=== PATIENT | male | born 1990 | race Caucasian/White ===

== ENCOUNTER 2018-04-13 18:31 | Emergency (ER) | payer OTHER ==
[~2018-04-13] VITALS: Ht 188 cm; Wt 122.5 kg
[2018-04-13 18:39] VITALS: BP_SYST 154
[2018-04-13] MEDS ORDERED: LORazepam 1 MG TABLET PO ONE (19:45)
[2018-04-13] MEDS ORDERED: KETOROLAC TROMETHAMINE 60 MG/2 ML VIAL IM ONE (20:00)
[2018-04-13] MEDS ORDERED: HYDROcodone/ACETAMIN 5-325 MG TAB (NORCO/ VICODIN) PO ONE (21:00)
[2018-04-13 21:27] VITALS: BP_SYST 138
== END 2018-04-13 21:27 | disposition home or self-care (01) ==
LOC: SED 18:31
DX: G44.209 Tension-type headache, unspecified, not intractable (principal); F41.9 Anxiety disorder, unspecified; R03.0 Elevated blood-pressure reading, without diagnosis of hypertension
CPT/HCPCS: 93005; 96372; 99283; J1885

== ENCOUNTER 2018-08-28 03:48 | Inpatient (IN) | payer OTHER ==
[~2018-08-28] VITALS: Ht 188 cm; Wt 113.4 kg
[2018-08-28] VITALS (12 sets, daily range): BP systolic 96–147
[2018-08-28] MEDS ORDERED: NACL 0.9% 2,000 ML IV ONE (04:00)
[2018-08-28] MEDS ORDERED: SODIUM BICARBONATE 8.4% JECT 50 MEQ/50 ML SYRINGE IVP ONE (04:15)
[2018-08-28 04:16] LABS: BASOPHILS % (AUTO) 0.2 % (0.0-2.0); EOSINOPHILS # (AUTO) 0.1 K/uL (0.0-0.4); EOSINOPHILS % (AUTO) 0.5 % (0.0-4.0); HEMOGLOBIN 14.1 g/dL (14.0-18.0); LYMPHOCYTES # (AUTO) 1.3 K/uL (1.0-5.5); LYMPHOCYTES % (AUTO) 12.7 % (20.5-51.5); MEAN CORPUSCULAR HEMOGLOBIN 29 pg (27-31); MEAN CORPUSCULAR HGB CONC 34 % (32-36); MEAN CORPUSCULAR VOLUME 88 fL (79.0-98.0); MONOCYTES # (AUTO) 0.5 K/uL (0.0-1.0); MONOCYTES % (AUTO) 5.1 % (1.7-9.3); NEUTROPHILS # (AUTO) 8.6 K/uL (1.8-7.7); NEUTROPHILS % (AUTO) 81.5 % (40.0-70.0); PLATELET COUNT (AUTO) 219 K/uL (130-430); RED BLOOD CELL COUNT(AUTO) 4.79 MIL/uL (4.2-6.2); RED CELL DISTRIBUTION WIDTH 12.7 % (9.0-15.0); WHITE BLOOD COUNT (AUTO) 10.5 K/uL (4.8-10.8)
[2018-08-28 04:26] LABS: ANION GAP 9 (5-15); CALCIUM 8.6 mg/dL (8.4-11.0); CHLORIDE 93 mmol/L (98-107); CREATININE 0.96 mg/dL (0.55-1.30); GLUCOSE 184 mg/dL (70-99); POTASSIUM 3.8 mmol/L (3.5-5.1); SODIUM SERUM 128 mmol/L (136-145); UREA NITROGEN, BLOOD 11 mg/dL (8-21)
[2018-08-28 04:33] LABS: ALANINE AMINOTRANSFERASE 42 U/L (12-78); ALBUMIN 3.8 g/dL (3.4-4.8); ALCOHOL, BLOOD < 3 mg/dL (<10); ASPARTATE AMINOTRANSFERASE 22 U/L (10-37); GFR AFRICAN AMERICAN 121 mL/min (>90); TOTAL BILIRUBIN 0.6 mg/dL (0.0-1.0)
[2018-08-28] MEDS ORDERED: levETIRAcetam 1,500 MG in NS 100 ML IV ONE (05:15)
[2018-08-28 10:14] LABS: ACETAMINOPHEN < 1 ug/mL (1-30)
[2018-08-28] MEDS ORDERED: PANTOPRAZOLE SODIUM 40 MG/VIAL (PROTONIX) IVP ONE (10:30)
[2018-08-28] MEDS ORDERED: ONDANSETRON HCL 4 MG/2 ML VIAL IVP ONE (10:30)
[2018-08-28] MEDS ORDERED: LORazepam 2 MG/ML VIAL IVP ONE (10:30)
[2018-08-28] MEDS ORDERED: LORazepam 2 MG/ML VIAL IM PRN (12:00)
[2018-08-28] MEDS ORDERED: ACETAMINOPHEN 650 MG SUPP.RECT RC PRN (12:00)
[2018-08-28] MEDS ORDERED: ONDANSETRON HCL 4 MG/2 ML VIAL IVP PRN (12:00)
[2018-08-28] MEDS: KCL 20 mEq in NS 1000 mL 1,000 ML IV SCH ×2 (12:42→21:00)
[2018-08-28] MEDS ORDERED: INSULIN LISPRO SLIDING SCALE 100 UNITS/ML VIAL (humaLOG) SUBCUT PRN (14:30)
[2018-08-28 16:29] LABS: BARBITURATE, URINE NEGATIVE (NEG <=200); BENZODIAZEPINE, URINE NEGATIVE (NEG <=150); CANNABINOID, URINE POSITIVE (NEG <=50); COCAINE, URINE NEGATIVE (NEG <=150); METHAMPHETAMINES SCREEN,URINE NEGATIVE (NEG <=500); OPIATE, URINE NEGATIVE (NEG <=100); PHENCYCLIDINE SCREEN,URINE NEGATIVE (NEG <=25); UR TRICYCLIC ANTIDEPRESSANTS NEGATIVE (NEG <=300); URINE AMPHETAMINE NEGATIVE (NEG <=500); URINE METHADONE NEGATIVE (NEG <=200); URINE OXYCODONE SCREEN NEGATIVE (NEG <=100); URINE PROPOXYPHENE SCREEN NEGATIVE (NEG <=300)
[2018-08-28] MEDS: levETIRAcetam 750 MG in NS 100 ML IV SCH (21:49)
[2018-08-29 05:15] LABS: CALCIUM 8.5 mg/dL (8.4-11.0); CREATININE 0.83 mg/dL (0.55-1.30); POTASSIUM 3.6 mmol/L (3.5-5.1)
[2018-08-29 05:31] LABS: THYROID STIMULATING HORMONE 0.7 uIu/mL (0.36-3.74)
[2018-08-29] MEDS: KCL 20 mEq in NS 1000 mL 1,000 ML IV SCH (06:03)
[2018-08-29 08:01] VITALS: BP_SYST 129
[2018-08-29] MEDS ORDERED: ACETAMINOPHEN 325 MG TABLET PO PRN (09:15)
[2018-08-29] MEDS: levETIRAcetam 750 MG in NS 100 ML IV SCH (09:16)
[2018-08-29 11:47] VITALS: BP_SYST 119
[2018-08-29] MEDS ORDERED: LEVE750T4 PO (13:52)
[2018-08-29 14:01] VITALS: BP_SYST 119
== END 2018-08-29 14:25 | disposition home or self-care (01) | DRG 918 ==
LOC: SED 03:48 → SIC 06:55 → STU 16:45
PROVIDERS: ADMIT Internal Medicine; ATTEND Internal Medicine
DX: T40.7X1A Poisoning by cannabis (derivatives), accidental (unintentional), initial encounter (principal); E87.1 Hypo-osmolality and hyponatremia; R11.2 Nausea with vomiting, unspecified; F43.22 Adjustment disorder with anxiety; F12.10 Cannabis abuse, uncomplicated; R73.9 Hyperglycemia, unspecified; R56.9 Unspecified convulsions; Y92.89 Other specified places as the place of occurrence of the external cause
CPT/HCPCS: 36415; 70450-TC; 80048; 80053; 80307; 82962; 83735-TC; 83930-TC; 83935-TC; 84443-TC; 85025; 87081; 93005; 96361; 96365; 96366; 96375; 99285; C9113; G0378; G0480; G0481; G0482; J1953; J2060; J2405; J3480